=== PATIENT | female | born 1995 | race African-American/Black ===

== ENCOUNTER 2020-11-05 19:20 | Emergency (ER) | payer OTHER ==
[~2020-11-05] VITALS: Ht 160 cm; Wt 81.6 kg
== END 2020-11-05 21:21 | disposition home or self-care (01) ==
LOC: ER 19:20
DX: S83.8X1A Sprain of other specified parts of right knee, initial encounter (principal); X50.0XXA Overexertion from strenuous movement or load, initial encounter; Y93.B2 Activity, push-ups, pull-ups, sit-ups; Y92.488 Other paved roadways as the place of occurrence of the external cause; Y99.8 Other external cause status